=== PATIENT | male | born 1945 | race Caucasian/White ===

== ENCOUNTER 2020-07-02 15:26 | Inpatient (IN) ==
[2020-07-02 15:59] LABS: ABS Basophils 0.1 10^3/ul (0-0.2); ABS Lymphocytes 1.2 10^3/ul (1.0-4.8); ABS Monocytes 0.8 10^3/ul (0-0.8); ABS Neutrophils 12.9 10^3/ul (1.5-7.7); Eosinophil % 0.2 %; Hematocrit 38 % (42-52); Hemoglobin 12.8 g/dL (14.0-18.0); Lymphocyte % 7.8 %; Mean Corpuscular HGB Conc 34 g/dL (31-36); Mean Corpuscular Hemoglobin 32 pg (27-31); Mean Corpuscular Volume 94 fL (80-94); Mean Platelet Volume 7.6 fL (7.4-10.4); Platelet Count 237 10^3/uL (150-450); Red Blood Count 4.02 10^6 /uL (4.18-5.48); Red Cell Distribution Width 13 % (10-15)
[2020-07-02 16:40] LABS: Albumin 4.1 g/dL (3.2-5.2); Albumin/Globulin Ratio 1.4 (1-3); BUN/Creatinine Ratio 11.4 (8-20); C Reactive Protein 203.45 mg/L (<8.01); Calcium 9.3 mg/dL (8.6-10.3); EGFR African American 69.8 (>60); EGFR Non-African American 57.7 (>60); Potassium 3.8 mmol/L (3.5-5.0); Total Bilirubin 2.3 mg/dL (0.2-1.0); Total Protein 7.1 g/dL (6.4-8.9)
[2020-07-02] MEDS ORDERED: Ciprofloxacin 400mg IVPREMIX 400 MG/200 ML BAG IVPB ONE (18:37)
[2020-07-02] MEDS ORDERED: Ciprofloxacin 400mg IVPREMIX 400 MG/200 ML BAG IVPB SCH (19:00)
[2020-07-02 19:45] LABS: Urine Appearance Cloudy; Urine Bilirubin Negative (Negative); Urine Blood 1+ (Negative); Urine Color Yellow; Urine Glucose Negative (Negative); Urine Ketones 1+ (Negative); Urine Nitrite Negative (Negative); Urine Protein Negative (Negative); Urine Urobilinogen Negative (Negative)
[2020-07-02 19:49] LABS: Urine Bacteria Absent (Absent); Urine Red Blood Cell 1+(3-5/hpf) (Absent); Urine Squamous Epithelial Cell Present (Absent); Urine White Blood Cell Trace(0-5/hpf) (Absent)
[2020-07-02] MEDS ORDERED: Morphine 2 MG/ML SYRINGE IV PRN (21:40)
[2020-07-02 21:57] LABS: Indirect Bilirubin 1.9 mg/dL (0.3-1.0)
[2020-07-02 21:59] LABS: Troponin I 0.01 ng/mL (<0.03)
[2020-07-02] MEDS ORDERED: Zosyn per Pharmacy NOTE FOLLOW UP SCH (22:00)
[2020-07-02] MEDS ORDERED: Enoxaparin 40 MG/0.4 ML SYR SUBCUT SCH (22:00)
[2020-07-02] MEDS ORDERED: NS 0.9% 1000 ml BAG 1,000 ML IV SCH (23:00)
[2020-07-02] MEDS ORDERED: Iodixanol (CONTRAST) 320 MG/ML 100 ML SDV IV ONE (23:05)
[2020-07-03] MEDS ORDERED: NS 0.9% 1000 ml BAG 1,000 ML IV SCH (00:29)
[2020-07-03] MEDS ORDERED: NS 0.9% 1000 ml BAG 1,000 ML IV ONE (00:43)
[2020-07-03] MEDS ORDERED: ZOSYN 3.375 GM x ONE DOSE over 30 miuntes IV (02:00)
[2020-07-03] MEDS: Pantoprazole VIAL 40 MG VIAL IV SCH ×2 (02:57→08:35)
[2020-07-03 05:54] LABS: ABS Basophils 0.1 10^3/ul (0-0.2); ABS Lymphocytes 1.4 10^3/ul (1.0-4.8); ABS Monocytes 0.7 10^3/ul (0-0.8); ABS Neutrophils 9.8 10^3/ul (1.5-7.7); Eosinophil % 0.1 %; Hematocrit 34 % (42-52); Hemoglobin 11.4 g/dL (14.0-18.0); Mean Corpuscular HGB Conc 34 g/dL (31-36); Mean Corpuscular Hemoglobin 32 pg (27-31); Mean Corpuscular Volume 95 fL (80-94); Mean Platelet Volume 7.6 fL (7.4-10.4); Platelet Count 204 10^3/uL (150-450); Red Cell Distribution Width 13 % (10-15)
[2020-07-03 06:15] LABS: Albumin 3.3 g/dL (3.2-5.2); Albumin/Globulin Ratio 1.2 (1-3); BUN/Creatinine Ratio 13.1 (8-20); Calcium 8.2 mg/dL (8.6-10.3); EGFR African American 89.7 (>60); EGFR Non-African American 74.1 (>60); Globulin 2.8 g/dL (2-4); Potassium 3.9 mmol/L (3.5-5.0); Total Bilirubin 1.7 mg/dL (0.2-1.0); Total Protein 6.1 g/dL (6.4-8.9)
[2020-07-03] MEDS ORDERED: Potassium Chlor 20 meq TAB.ER PO ONE (07:31)
[2020-07-03] MEDS ORDERED: Lactated Ringers 1000 ml BAG 1,000 ML IV SCH (08:00)
[2020-07-03] MEDS: ZOSYN 3.375 GM Q8H per EXTENDED INFUSION IV SCH ×2 (08:21→16:38)
[2020-07-03] MEDS: KCL 10 MEQ/50 ML IVPREMIX 10 MEQ/50 ML BAG IV SCH ×2 (08:21→11:42)
[2020-07-03] MEDS ORDERED: Propofol 10 MG/ML 20 ML BTL ONE (13:04)
[2020-07-03] MEDS ORDERED: Phenylephrine IV 10 MG/ML 1 ml VIAL ONE (13:04)
[2020-07-03] MEDS ORDERED: Midazolam 5 mg/5 ml VIAL 1 mg/ml 5 ml VIAL (5 mg) ONE (13:04)
[2020-07-03] MEDS ORDERED: Rocuronium 50 mg VIAL 10 mg/ml 5 ml VIAL (50 mg) ONE (13:04)
[2020-07-03] MEDS ORDERED: Ketamine HCL 50 mg/ml 10 ml VIAL (500 MG) ONE (13:04)
[2020-07-03] MEDS ORDERED: Lidocaine 2% PF 5 ML VIAL ONE (13:04)
[2020-07-03] MEDS ORDERED: Ondansetron 4 mg VIAL 2 MG/ML 2 ml VIAL ONE (13:04)
[2020-07-03] MEDS ORDERED: fentaNYL 250 mcg/5 ml 50 MCG/ML 5 ml VIAL (250 MCG) ONE (13:04)
[2020-07-03] MEDS ORDERED: Dexamethasone IV 4 MG/ML VIAL 1 ml VIAL ONE ×2 (13:05)
[2020-07-03] MEDS ORDERED: Bupivacaine 0.25% EPI 200,000 30 ML SDV ONE (13:17)
[2020-07-04] MEDS: ZOSYN 3.375 GM Q8H per EXTENDED INFUSION IV SCH ×3 (00:12→18:29)
[2020-07-04 07:07] LABS: ABS Eosinophils 0.3 10^3/ul (0-0.6); ABS Lymphocytes 1.7 10^3/ul (1.0-4.8); ABS Monocytes 0.8 10^3/ul (0-0.8); Eosinophil % 2.9 %; Hematocrit 34 % (42-52); Hemoglobin 11.5 g/dL (14.0-18.0); Lymphocyte % 19.5 %; Mean Corpuscular HGB Conc 33 g/dL (31-36); Mean Corpuscular Hemoglobin 32 pg (27-31); Mean Corpuscular Volume 94 fL (80-94); Mean Platelet Volume 7.6 fL (7.4-10.4); Platelet Count 245 10^3/uL (150-450); Red Blood Count 3.64 10^6 /uL (4.18-5.48); Red Cell Distribution Width 13 % (10-15); White Blood Count 8.8 10^3/uL (3.5-10.8)
[2020-07-04 07:21] LABS: Albumin 3.2 g/dL (3.2-5.2); Albumin/Globulin Ratio 1.2 (1-3); BUN/Creatinine Ratio 13.3 (8-20); Calcium 8.7 mg/dL (8.6-10.3); EGFR African American 83.8 (>60); EGFR Non-African American 69.2 (>60); Globulin 2.7 g/dL (2-4); Magnesium 1.7 mg/dL (1.9-2.7); Potassium 3.9 mmol/L (3.5-5.0); Total Bilirubin 1.8 mg/dL (0.2-1.0); Total Protein 5.9 g/dL (6.4-8.9)
[2020-07-04 07:40] LABS: Activated Partial Thrombo Time 29.9 seconds (26.0-38.0); INR 1.2 (0.82-1.09)
[2020-07-04] MEDS: Pantoprazole VIAL 40 MG VIAL IV SCH (08:01)
[2020-07-04] MEDS ORDERED: Ketamine HCL 50 mg/ml 10 ml VIAL (500 MG) ONE (13:36)
[2020-07-04] MEDS ORDERED: fentaNYL 100 mcg/2 ml 50 MCG/ML VIAL ONE ×2 (13:36→16:43)
[2020-07-04] MEDS ORDERED: Lidocaine 2% PF 5 ML VIAL ONE (13:40)
[2020-07-04] MEDS ORDERED: Dexamethasone IV 4 MG/ML VIAL 1 ml VIAL ONE (13:40)
[2020-07-04] MEDS ORDERED: Ondansetron 4 mg VIAL 2 MG/ML 2 ml VIAL ONE (13:40)
[2020-07-04] MEDS ORDERED: Propofol 10 MG/ML 20 ML BTL ONE (13:40)
[2020-07-04] MEDS ORDERED: Rocuronium 50 mg VIAL 10 mg/ml 5 ml VIAL (50 mg) ONE ×2 (13:44→15:41)
[2020-07-04] MEDS ORDERED: Phenylephrine IV 10 MG/ML 1 ml VIAL ONE (15:51)
[2020-07-04] MEDS ORDERED: Glycopyrrolate IV 0.2 MG/ML 1 ML VIAL ONE (15:56)
[2020-07-04] MEDS ORDERED: fentaNYL 100 mcg/2 ml 50 MCG/ML VIAL IV PRN (16:45)
[2020-07-04] MEDS ORDERED: DiMENhydriNATE IV 50 mg/ml 1 ml VIAL IV PUSH PRN (16:45)
[2020-07-04] MEDS ORDERED: Ondansetron 4 mg VIAL 2 MG/ML 2 ml VIAL IV PRN ×2 (16:45→18:05)
[2020-07-04] MEDS ORDERED: Naloxone 0.4 mg VIAL 0.4 mg/ml 1 ml VIAL IV PRN (16:45)
[2020-07-04] MEDS: D5W 1/2 NS w/KCL 20 MEQ IVFLUID 1000 ML IV SCH (18:08)
[2020-07-05] MEDS: ZOSYN 3.375 GM Q8H per EXTENDED INFUSION IV SCH ×3 (02:05→16:47)
[2020-07-05 07:05] LABS: ABS Monocytes 0.8 10^3/ul (0-0.8); ABS Neutrophils 7.5 10^3/ul (1.5-7.7); Eosinophil % 0.1 %; Hematocrit 36 % (42-52); Hemoglobin 12.2 g/dL (14.0-18.0); Lymphocyte % 11.1 %; Mean Corpuscular HGB Conc 34 g/dL (31-36); Mean Corpuscular Hemoglobin 32 pg (27-31); Mean Corpuscular Volume 94 fL (80-94); Mean Platelet Volume 7.6 fL (7.4-10.4); Platelet Count 298 10^3/uL (150-450); Red Blood Count 3.85 10^6 /uL (4.18-5.48); Red Cell Distribution Width 13 % (10-15); White Blood Count 9.3 10^3/uL (3.5-10.8)
[2020-07-05 07:14] LABS: Albumin 3.4 g/dL (3.2-5.2); Albumin/Globulin Ratio 1.1 (1-3); BUN/Creatinine Ratio 12.3 (8-20); EGFR African American 82.9 (>60); EGFR Non-African American 68.5 (>60); Potassium 4.2 mmol/L (3.5-5.0); Total Protein 6.4 g/dL (6.4-8.9)
[2020-07-05] MEDS: D5W 1/2 NS w/KCL 20 MEQ IVFLUID 1000 ML IV SCH ×2 (08:12→23:50)
[2020-07-06] MEDS: ZOSYN 3.375 GM Q8H per EXTENDED INFUSION IV SCH ×3 (01:58→15:19)
[2020-07-06 06:02] LABS: ABS Basophils 0.1 10^3/ul (0-0.2); ABS Eosinophils 0.4 10^3/ul (0-0.6); ABS Lymphocytes 2.5 10^3/ul (1.0-4.8); ABS Neutrophils 4.6 10^3/ul (1.5-7.7); Eosinophil % 4.4 %; Hematocrit 33 % (42-52); Hemoglobin 11.1 g/dL (14.0-18.0); Lymphocyte % 29.2 %; Mean Corpuscular HGB Conc 34 g/dL (31-36); Mean Corpuscular Hemoglobin 32 pg (27-31); Mean Corpuscular Volume 94 fL (80-94); Mean Platelet Volume 7.3 fL (7.4-10.4); Platelet Count 278 10^3/uL (150-450); Red Blood Count 3.51 10^6 /uL (4.18-5.48); Red Cell Distribution Width 13 % (10-15); White Blood Count 8.5 10^3/uL (3.5-10.8)
[2020-07-06 06:11] LABS: BUN/Creatinine Ratio 10.4 (8-20); Calcium 8.7 mg/dL (8.6-10.3); EGFR African American 75.4 (>60); EGFR Non-African American 62.3 (>60); Potassium 3.9 mmol/L (3.5-5.0)
[2020-07-06 15:55] VITALS: BP 133/69
== END 2020-07-06 17:16 | disposition home or self-care (01) | DRG 720 ==
LOC: ICU 15:26 → ED 15:26 → ICU 07-03 03:28 → SSU 07-03 14:11
PROVIDERS: ADMIT Internal Medicine; ATTEND Internal Medicine

== ENCOUNTER 2020-09-10 10:24 | Inpatient (IN) ==
[~2020-09-10 10:24] MED LIST: Buffered Lidocaine 1% SYRIN 1 ml INTRADERM ONE; Lactated Ringers 1000 ml BAG 1,000 ML IV SCH; Naloxone 0.4 mg VIAL 0.4 mg/ml 1 ml VIAL IV PRN; Prochlorperazine 5 mg/ml 2 ml VIAL (10 mg) IV PRN; diPHENhydraMINE IV 50 MG/ML 1 ml VIAL (BENADRYL) IV PRN
[2020-09-10] MEDS ORDERED: Heparin 5000 UNITS/ML 1 mL VIAL ONE (10:44)
[2020-09-10] MEDS ORDERED: Ertapenem 1 GM in NS 0.9% 50 ML IVPB ONE (11:00)
[2020-09-10] MEDS ORDERED: Midazolam 2 mg/2 ml VIAL 1 mg/ml 2 ml VIAL (2 mg) ONE (11:07)
[2020-09-10] MEDS ORDERED: fentaNYL 250 mcg/5 ml 50 MCG/ML 5 ml VIAL (250 MCG) ONE (11:07)
[2020-09-10] MEDS ORDERED: Propofol 10 MG/ML 20 ML BTL ONE (11:08)
[2020-09-10] MEDS ORDERED: Lidocaine 2% PF 5 ML VIAL ONE (11:08)
[2020-09-10] MEDS ORDERED: Rocuronium 50 mg VIAL 10 mg/ml 5 ml VIAL (50 mg) ONE ×2 (11:08)
[2020-09-10] MEDS ORDERED: Bupivacaine 0.25% EPI 200,000 30 ML SDV ONE (14:34)
[2020-09-10] MEDS ORDERED: Dexamethasone IV 4 MG/ML VIAL 1 ml VIAL ONE (14:42)
[2020-09-10] MEDS ORDERED: EPHEDrine (Pressors) 50 MG/ML VIAL ONE (14:44)
[2020-09-10] MEDS ORDERED: Glycopyrrolate IV 0.2 MG/ML 1 ML VIAL ONE (15:28)
[2020-09-10] MEDS ORDERED: Phenylephrine 40 mcg/mL 10mL (400mcg) SYRINGE ONE (15:52)
[2020-09-10] MEDS ORDERED: HYDROmorphone 1 MG/1 ML SYRINGE ONE ×2 (18:11→19:33)
[2020-09-10] MEDS ORDERED: Prochlorperazine 5 mg/ml 2 ml VIAL (10 mg) ONE (19:08)
[2020-09-10] MEDS: HYDROmorphone 1 MG/1 ML SYRINGE IV PRN ×5 (19:33→20:58)
[2020-09-10] MEDS: Lactated Ringers 1000 ml BAG 1,000 ML IV SCH (21:38)
[2020-09-10] MEDS: Ondansetron 4 mg VIAL 2 MG/ML 2 ml VIAL IV PRN (21:38)
[2020-09-11] MEDS: Ondansetron 4 mg VIAL 2 MG/ML 2 ml VIAL IV PRN (01:48)
[2020-09-11] MEDS: HYDROmorphone 1 MG/1 ML SYRINGE IV SLOW PU PRN ×2 (01:48→08:19)
[2020-09-11 04:49] LABS: ABS Lymphocytes 0.7 10^3/ul (1.0-4.8); ABS Monocytes 0.8 10^3/ul (0-0.8); Hematocrit 38 % (42-52); Hemoglobin 12.5 g/dL (14.0-18.0); Lymphocyte % 5.9 %; Mean Corpuscular HGB Conc 33 g/dL (31-36); Mean Corpuscular Hemoglobin 31 pg (27-31); Mean Corpuscular Volume 93 fL (80-94); Mean Platelet Volume 7.4 fL (7.4-10.4); Platelet Count 266 10^3/uL (150-450); Red Blood Count 4.01 10^6 /uL (4.18-5.48); Red Cell Distribution Width 13 % (10-15); White Blood Count 12.6 10^3/uL (3.5-10.8)
[2020-09-11 05:06] LABS: Calcium 8.7 mg/dL (8.6-10.3); EGFR Non-African American 63.6 (>60); Potassium 4.5 mmol/L (3.5-5.0)
[2020-09-11] MEDS: Lactated Ringers 1000 ml BAG 1,000 ML IV SCH (05:40)
[2020-09-11] MEDS: Heparin 5000 UNITS/ML 1 mL VIAL SUBCUT SCH ×3 (05:40→22:53)
[2020-09-12] MEDS: Heparin 5000 UNITS/ML 1 mL VIAL SUBCUT SCH (06:22)
[2020-09-12 07:32] VITALS: BP 126/67
[2020-09-13] MEDS ORDERED: Scopolamine PATCH Remove NOTE PATCH OFF ONE (22:00)
== END 2020-09-12 12:15 | disposition home or self-care (01) ==
LOC: OR 10:24 → SSU 21:19
PROVIDERS: ADMIT Surgery; ATTEND Surgery